=== PATIENT | male | born 1965 | race Caucasian/White ===

== ENCOUNTER 2024-10-09 21:24 | Emergency (ER) | payer OTHER, SELFPAY ==
[2024-10-09 21:33] VITALS: BP 202/119
[2024-10-09 22:09] LABS: % Immature Granulocytes 0.2 % (0-0.5); % Lymphocytes 33.2 % (20.5-51.1); % Monocytes 13.7 % (1.7-9.3); % Neutrophils 46.9 % (42.2-75.2); Absolute Basophils 0.1 10^3/uL (0-0.2); Absolute Eosinophils 0.3 10^3/uL (0-0.7); Absolute Lymphocytes 1.9 10^3/uL (1.2-3.4); Absolute Monocytes 0.8 10^3/uL (0.1-0.6); Absolute Neutrophils 2.7 10^3/uL (1.4-6.5); Hemoglobin 14.4 g/dL (13.0-18.0); Mean Corp Hgb Conc. 34.3 g/dL (33.0-37.0); Mean Corpuscular Hgb 31.1 pg (27.0-31.0); Mean Corpuscular Volume 90.7 fL (80.0-94.0); Mean Platelet Volume 10.1 fL (7.4-10.4); Nucleated Red Blood Cells % 0 % (-); Platelet Count 227 10^3/uL (130-400); Red Blood Cell Count 4.63 10^6/uL (4.70-6.10); Red Cell Dist. Width 12.1 % (11.5-14.5); White Blood Cell Count 5.8 10^3/uL (4.8-10.8)
[2024-10-09 22:24] LABS: ALT (SGPT) 45 U/L (0-50); AST (SGOT) 36 U/L (17-59); Albumin 4.4 g/dl (3.5-5.0); Alkaline Phosphatase 42 U/L (38-126); Blood Urea Nitrogen 25 mg/dl (9-20); Calcium 9.2 mg/dl (8.4-10.2); Carbon Dioxide 29 mmol/L (22-30); Chloride 102 mmol/L (98-107); Glucose 99 mg/dl (70-99); Potassium 4.3 mmol/L (3.5-5.1); Sodium 137 mmol/L (135-145); Total Bilirubin 0.5 mg/dl (0.2-1.3); Total Protein 7.2 g/dl (6.3-8.2); eGFR > 60.00
[2024-10-10] VITALS: BP 219/115
[2024-10-10 00:09] VITALS: BMI 26.3
--- NOTE | 2024-10-10 00:12 | EDRN ---
Pt went to dentist earlier this week and his sbp was over 160. Pt advised to follow up with primary. Pt bought a bp machine and has been checking bp at home - tonight, sbp was 185-192. Pt is asymptomatic - no headache, visual disturbance, cp,
sob, abd pain, n/v, dizziness, weakness.
[2024-10-10 00:17] VITALS: BP 216/115
--- NOTE | 2024-10-10 00:23 | EDRN ---
Called pharmacy for captopril
[2024-10-10 00:30] VITALS: BP 197/117
[2024-10-10] MEDS: CAPOTEN 12.5 MG PO (00:38)
[2024-10-10 01:00] VITALS: BP 167/102
[2024-10-10 01:30] VITALS: BP 157/88
--- NOTE | 2024-10-10 01:45 | ED.GENMED ---
History of Present Illness
General
Chief Complaint: Blood Pressure Problem
Source: patient
Exam Limitations: none
Time Seen by Provider: 10/09/24 23:54
Nursing documentation reviewed up to this point in time: agreed with
History of Present Illness
History of Present Illness:
58-year-old male presenting to the emergency department today with concerns of elevated blood pressure over the past few days. Has been taking a lot of blood pressures range from 150s to 190s. Denies any chest pain shortness of breath changes in
bowel movements or urination. Denies any numbness or weakness. No neck pain headache or changes in vision.
Past History
Past History
ED Past Medical History: None
ED Past Surgical History: None
Social History
Tobacco: Non-smoker
Drug: None
Review of Systems
Review of Systems
Allergies reviewed?: Yes
All Other Systems: ROS reviewed and negative except as documented in HPI and ROS
Phy Exam
Physical Exam
Physical Exam:
GENERAL: Alert , in no apparent distress
EYE: pupils equal and reactive
NECK: Supple, no significant adenopathy.
ENT: o/p clr, mmm.
CARDIAC: Regular rate and rhythm .
LUNGS: Clear breath sounds bilaterally, no acute respiratory distress, no wheezes/rales/rhonchi
ABDOMEN: Soft, without focal tenderness, no r/g, no cvat
NEUROLOGICAL: Alert and oriented, no focal neuro deficits
SKIN: Warm and dry, skin intact.
MUSCULOSKELETAL: No edema, well perfused.
PSYCH: Normal and appropriate interaction.
Course
Orders/Labs/Results
Orders:
Orders
10/09/24 21:40
Electrocardiogram (*1) Urgent
Reason for Study: Hypertension, Benign
EKG- Treatment ONCE
10/09/24 21:54
Complete Blood Count/With Diff Urgent
Comprehensive Metabolic Panel Urgent
10/10/24 01:00
Captopril [Capoten] 12.5 mg PO ONCE ONE
10/10/24 01:44
Lisinopril [Zestril] 5 mg PO NOW STA
Abnormal Lab Results
10/09/24
21:54
RBC 4.63 L 10^6/uL
(4.70-6.10)
MCH 31.1 H pg
(27.0-31.0)
Absolute Monos (auto) 0.8 H 10^3/uL
(0.1-0.6)
Monocytes % 13.7 H %
(1.7-9.3)
BUN 25 H mg/dl
(9-20)
10/09/24 21:54
10/09/24 21:54
Vital Signs
Initial and Last Documented VS:
Initial Vital Signs
Temp Pulse Resp BP Pulse Ox
98 F 70 18 202/119 97
10/09/24 21:33 10/09/24 21:33 10/09/24 21:33 10/09/24 21:33 10/09/24 21:33
Last Documented Vital Signs
Temp Pulse Resp BP Pulse Ox
98 F 64 13 157/88 99
10/09/24 21:33 10/10/24 01:30 10/10/24 00:17 10/10/24 01:30 10/10/24 00:00
MDM/Problems Addressed
MDM/Problems Addressed:
58-year-old male presenting to the emergency department today with concerns of elevated blood pressure over the past few days. Did not previously take his blood pressure regularly. On arrival in the 200s over 120s. Other vital signs are normal.
Patient well-appearing no distress EKG and labs without emergent findings. Patient was given dose Here blood pressure improving. Otherwise will be discharged on lisinopril until follow-up with primary care doctor in 1 week. Return precautions
given.
*Critical Care Note
Total Time (30-74mins, 75-104mins- exclusive of procedures): Not Applicable
ED Attending Note
-
Portions of this chart may have been created with voice recognition software.� Occasional wrong word or��sound alike� substitutions may have occurred due to the inherent limitations of voice recognition software.
Discharge Plan
Departure
Patient Disposition: Home (Routine Discharge)
Date of Disposition: 10/10/24
Time of Disposition: 01:46
Patient with high blood pressure during this ER visit?: Yes
Condition: Good
Covid-19: Not Applicable
Discharge Problem:
High blood pressure
Instructions: High Blood Pressure (DC)
Prescriptions:
New
lisinopril 5 mg tablet
5 mg PO DAILY 14 Days Qty: 14 0RF
Referrals:
Anand Perez MD [Family Provider] -
Activity Restrictions/Additional Instructions:
You came to the emergency department today with concerns of high blood pressure. Please take the prescribed medication once daily and follow-up closely with your primary care doctor. Return for any worsening, new or concerning symptoms.
Interventions
Interventions:
*Risk Screen - Suicide Last Done: 10/10/24 00:09
*General Assessment Last Done: 10/10/24 00:09
*Neglect/Abuse Screening Last Done: 10/10/24 00:09
*ED- Fall Risk Assessment Last Done: 10/10/24 00:09
*ED COVID-19 Vaccine History Last Done: 10/10/24 00:09
ED- Cardiac Assessment Last Done: 10/10/24 00:13
ED- Neurological Assessment Last Done: 10/10/24 00:13
ED- Pulmonary Assessment Last Done: 10/10/24 00:13
Discharge Date and Time
Print Language: GUAMANIAN
[2024-10-10] MEDS: ZESTRIL 5 MG PO (01:50)
== END 2024-10-10 02:00 | disposition home or self-care (01) ==
LOC: EMR 21:24
PROVIDERS: EMERGENCY PHYSICIAN Emergency Medicine; FAMILY PHYSICIAN Family Medicine
DX: I10 Essential (primary) hypertension (principal)
CPT/HCPCS: 99284; 80053; 85025; 93005